=== PATIENT | male | born 1965 | race African-American/Black ===

== ENCOUNTER 2023-02-18 21:37 | Inpatient (IN) | payer OTHER ==
[2023-02-18 21:42] VITALS: BMI 36.0
[2023-02-18] MEDS ORDERED: LORazepam 2 MG/ML SDV VIAL IM ONE (22:12)
[2023-02-18] MEDS ORDERED: LORazepam 2 MG/ML SDV VIAL IVPUSH PRN (22:15)
[2023-02-18 22:19] LABS: BASO % 0.5 % (0-2.0); HEMATOCRIT 33.6 % (35.4-49); LYMPH % 22.7 % (8-40); MCH 29.2 pg (25.7-33.7); MCHC 32.8 g/dl (32.0-35.9); MEAN PLT VOLUME 8.3 fl (7.5-11.1); MONO % 6.5 % (3.8-10.2); NEUT % 68.3 % (42.8-82.8); PLATELET COUNT 297 10^3/uL (134-434); RBC 3.78 M/mm3 (4.00-5.60); RDW 13.6 % (11.9-15.9); WHITE BLOOD COUNT 17.2 K/mm3 (4.0-10.0)
[2023-02-18 22:43] LABS: ALBUMIN 4.2 g/dl (3.4-5.0); BLOOD UREA NITROGEN 12.6 mg/dL (7-18); CALCIUM 9.4 mg/dL (8.5-10.1); CO2 25 mmol/L (21-32); GLUCOSE,RANDOM 145 mg/dL (74-106); MAGNESIUM 2.2 mg/dL (1.8-2.4)
[2023-02-18 22:46] LABS: CREATININE 1.2 mg/dL (0.55-1.3); PHOSPHOROUS 4.1 mg/dL (2.5-4.9); SGPT/ALT 47 U/L (13-61)
[2023-02-18 22:47] LABS: SGOT/AST 24 U/L (15-37)
[2023-02-18 22:48] LABS: BILIRUBIN,TOTAL 0.2 mg/dL (0.2-1)
[2023-02-18 22:49] LABS: ALK PHOS 115 U/L (45-117)
[2023-02-18 22:56] LABS: LACTIC ACID 4.7 mmol/L (0.4-2.0)
[2023-02-18 23:06] LABS: ANION GAP 6 MMOL/L (8-16); CHLORIDE 106 mmol/L (98-107); POTASSIUM 3.6 mmol/L (3.5-5.1); SODIUM 137 mmol/L (136-145)
[2023-02-18] MEDS ORDERED: SODIUM CHLORIDE 0.9% 500 ML INFUS.BAG IV ONE (23:27)
[2023-02-18] MEDS ORDERED: levETIRAcetam 500 MG/5 ML INJECTION VIAL IVPB ONE ×2 (23:48→23:49)
[2023-02-19 00:37] LABS: URINE APPEARANCE CLEAR; URINE BILIRUBIN NEGATIVE (NEGATIVE); URINE COLOR YELLOW; URINE GLUCOSE (UA) NEGATIVE (NEGATIVE); URINE KETONE NEGATIVE (NEGATIVE); URINE LEUK ESTERASE NEGATIVE (NEGATIVE); URINE NITRITE NEGATIVE (NEGATIVE); URINE PROTEIN NEGATIVE (NEGATIVE); URINE UROBILINOGEN 0.2 mg/dL (0.2-1.0)
[2023-02-19 00:45] LABS: COCAINE, UR NEGATIVE (NEGATIVE)
[2023-02-19 00:46] LABS: OPIATES, URI NEGATIVE (NEGATIVE); PHENCYCLIDINE,URINE NEGATIVE (NEGATIVE); URINE AMPHETAMINES NEGATIVE (NEGATIVE); URINE BARBITURATES NEGATIVE (NEGATIVE)
[2023-02-19 00:47] LABS: METHADONE, UR NEGATIVE (NEGATIVE)
[2023-02-19 01:09] LABS: URINE BENZODIAZEPINES NEGATIVE (NEGATIVE)
[2023-02-19 01:21] LABS: BASO % 0.4 % (0-2.0); EOS % 0.5 % (0-4.5); HEMATOCRIT 31.4 % (35.4-49); HEMOGLOBIN 10.4 GM/dL (11.7-16.9); LYMPH % 10.8 % (8-40); MCH 29.5 pg (25.7-33.7); MCHC 33.2 g/dl (32.0-35.9); MEAN CELL VOLUME 88.9 fl (80-96); MEAN PLT VOLUME 8.1 fl (7.5-11.1); NEUT % 82.3 % (42.8-82.8); PLATELET COUNT 249 10^3/uL (134-434); RBC 3.53 M/mm3 (4.00-5.60); RDW 13.5 % (11.9-15.9); WHITE BLOOD COUNT 12.1 K/mm3 (4.0-10.0)
[2023-02-19] MEDS ORDERED: DEXTROSE 5%-0.45% SALINE 1,000 ML IV SCH ×2 (02:15→16:31)
[2023-02-19] MEDS ORDERED: levETIRAcetam 500 MG/5 ML INJECTION VIAL IVPB ONE (09:46)
[2023-02-19] MEDS ORDERED: levETIRAcetam 500 MG/5 ML INJECTION VIAL IVPB SCH ×2 (10:00→22:00)
[2023-02-19] MEDS ORDERED: LORazepam 2 MG/ML SDV VIAL IVPUSH PRN (16:31)
[2023-02-19] MEDS ORDERED: LOSARTAN POTASSIUM 50 MG TABLET PO ONE (20:42)
[2023-02-19] MEDS ORDERED: THIAMINE HCL 100 MG TABLET (FP) PO ONE ×2 (20:44→21:45)
[2023-02-19] MEDS: chlordiazePOXIDE HCL 25 MG CAPSULE PO SCH (21:44)
[2023-02-19] MEDS: METOPROLOL TARTRATE 25 MG TABLET (FP) PO SCH (21:44)
[2023-02-19] MEDS: levETIRAcetam 500 MG TABLET (FP) PO SCH (21:44)
[2023-02-19] MEDS: carBAMazepine XR 400 MG TAB.ER.12H PO SCH (22:52)
[2023-02-20 05:37] VITALS: RESP 18
[2023-02-20] MEDS: chlordiazePOXIDE HCL 25 MG CAPSULE PO SCH (05:57)
[2023-02-20 08:12] LABS: HEMATOCRIT 32.5 % (35.4-49); HEMOGLOBIN 10.5 GM/dL (11.7-16.9); MCH 29.5 pg (25.7-33.7); MCHC 32.4 g/dl (32.0-35.9); MEAN CELL VOLUME 91.1 fl (80-96); MEAN PLT VOLUME 9.4 fl (7.5-11.1); PLATELET COUNT 270 10^3/uL (134-434); RBC 3.57 M/mm3 (4.00-5.60); RDW 13.2 % (11.9-15.9); WHITE BLOOD COUNT 10.1 K/mm3 (4.0-10.0)
[2023-02-20 08:33] LABS: POTASSIUM 4.3 mmol/L (3.5-5.1)
[2023-02-20 08:36] LABS: ALBUMIN 3.9 g/dl (3.4-5.0); BLOOD UREA NITROGEN 13.3 mg/dL (7-18); CALCIUM 9.3 mg/dL (8.5-10.1)
[2023-02-20 08:39] LABS: CREATININE 1.1 mg/dL (0.55-1.3)
[2023-02-20 08:41] LABS: BILIRUBIN,TOTAL 0.7 mg/dL (0.2-1); TOT PROT 7.1 g/dl (6.4-8.2)
[2023-02-20] MEDS ORDERED: THIAMINE HCL 100 MG TABLET (FP) PO SCH (10:00)
[2023-02-20] MEDS ORDERED: LOSARTAN POTASSIUM 50 MG TABLET PO SCH (10:00)
[2023-02-20] MEDS: levETIRAcetam 500 MG TABLET (FP) PO SCH (10:17)
[2023-02-20] MEDS: METOPROLOL TARTRATE 25 MG TABLET (FP) PO SCH (10:27)
[2023-02-20] MEDS: carBAMazepine XR 400 MG TAB.ER.12H PO SCH (10:29)
[2023-02-20 15:34] VITALS: BP 132/74; PULSE 74; TEMP 98.4
== END 2023-02-20 17:40 | disposition home or self-care (01) | DRG 53 ==
LOC: JER 21:37 → JERBED 23:51 → OBSVTOIN 02-19 12:54 → J6S 02-19 16:24
PROVIDERS: ADMIT Internal Medicine; ATTEND Family Medicine
DX: G40.909 Epilepsy, unspecified, not intractable, without status epilepticus (principal); I10 Essential (primary) hypertension; E78.5 Hyperlipidemia, unspecified; J45.20 Mild intermittent asthma, uncomplicated; F10.10 Alcohol abuse, uncomplicated; E87.20 Acidosis, unspecified
CPT/HCPCS: 36415; 70450-TC; 70496-TC; 71045-TC-FY; 80053; 80156; 80177; 80307; 81003; 83605; 83735; 84100; 85025; 85027; 87086; 87635; 93005; 93010; 97116-GP; 97162-GP; 99285-25; G0378; Q9967

== ENCOUNTER 2023-07-29 07:23 | Emergency (ER) | payer OTHER ==
[2023-07-29 07:43] VITALS: TEMP 99.1; BMI 35.0
[2023-07-29] MEDS ORDERED: carBAMazepine 200 MG TABLET PO ONE (07:53)
[2023-07-29] MEDS ORDERED: levETIRAcetam 500 MG TABLET (FP) PO ONE ×2 (07:53→08:38)
[2023-07-29] MEDS ORDERED: HYDROCHLOROTHIAZIDE 25 MG TABLET (FP) PO ONE (08:04)
[2023-07-29] MEDS ORDERED: LISINOPRIL 20 MG TABLET PO ONE (08:04)
[2023-07-29 08:23] LABS: BASO % 0.3 % (0-2.0); EOS % 0.6 % (0-4.5); HEMATOCRIT 32.7 % (35.4-49); HEMOGLOBIN 10.5 GM/dL (11.7-16.9); LYMPH % 9.9 % (8-40); MCH 29.3 pg (25.7-33.7); MCHC 32.1 g/dl (32.0-35.9); MEAN CELL VOLUME 91.3 fl (80-96); MONO % 5.9 % (3.8-10.2); NEUT % 83.3 % (42.8-82.8); PLATELET COUNT 259 10^3/uL (134-434); RBC 3.58 M/mm3 (4.00-5.60); RDW 13.2 % (11.9-15.9); WHITE BLOOD COUNT 13.3 K/mm3 (4.0-10.0)
[2023-07-29] MEDS ORDERED: LISINOPRIL 20 MG TABLET ONE (08:38)
[2023-07-29] MEDS ORDERED: HYDROCHLOROTHIAZIDE 25 MG TABLET (FP) ONE (08:38)
[2023-07-29] MEDS ORDERED: carBAMazepine 200 MG TABLET ONE (08:38)
[2023-07-29 08:40] LABS: POTASSIUM 3.9 mmol/L (3.5-5.1)
[2023-07-29 08:43] LABS: ALBUMIN 4.1 g/dl (3.4-5.0); BLOOD UREA NITROGEN 14.8 mg/dL (7-18)
[2023-07-29 08:46] LABS: CREATININE 0.9 mg/dL (0.55-1.3)
[2023-07-29 08:48] LABS: BILIRUBIN,TOTAL 0.4 mg/dL (0.2-1); TOT PROT 7.6 g/dl (6.4-8.2)
[2023-07-29 10:06] VITALS: RESP 20
[2023-07-29 10:56] VITALS: BP 145/64; PULSE 87
== END 2023-07-29 11:18 | disposition home or self-care (01) ==
LOC: JER 07:23
DX: R55 Syncope and collapse (principal); R56.9 Unspecified convulsions; R42 Dizziness and giddiness; Z20.822 Contact with and (suspected) exposure to COVID-19
CPT/HCPCS: 0241U-QW; 36415; 70450-TC; 71045-TC-FY; 80053; 80156; 80177; 83605; 84484; 85025; 93005; 93010; 99285-25

== ENCOUNTER 2024-01-03 09:19 | Emergency (ER) | payer OTHER ==
[2024-01-03 09:27] VITALS: TEMP 98.9; BMI 35.2
[2024-01-03 10:32] LABS: BASO % 0.3 % (0-2.0); EOS % 1.2 % (0-4.5); HEMATOCRIT 34.8 % (35.4-49); HEMOGLOBIN 11.2 GM/dL (11.7-16.9); LYMPH % 15.5 % (8-40); MCH 29.1 pg (25.7-33.7); MCHC 32.1 g/dl (32.0-35.9); MEAN CELL VOLUME 90.6 fl (80-96); MEAN PLT VOLUME 8.8 fl (7.5-11.1); MONO % 5.1 % (3.8-10.2); NEUT % 77.9 % (42.8-82.8); PLATELET COUNT 310 10^3/uL (134-434); RBC 3.84 M/mm3 (4.00-5.60); WHITE BLOOD COUNT 13.9 K/mm3 (4.0-10.0)
[2024-01-03 10:56] LABS: POTASSIUM 4.3 mmol/L (3.5-5.1)
[2024-01-03 10:57] LABS: MAGNESIUM 2.3 mg/dL (1.8-2.4)
[2024-01-03 10:58] LABS: BLOOD UREA NITROGEN 19.1 mg/dL (7-18); CALCIUM 9.5 mg/dL (8.5-10.1)
[2024-01-03 11:00] LABS: ALBUMIN 4.2 g/dl (3.4-5.0)
[2024-01-03 11:01] LABS: PHOSPHOROUS 3.8 mg/dL (2.5-4.9)
[2024-01-03 11:03] LABS: CREATININE 1.1 mg/dL (0.55-1.3)
[2024-01-03 11:04] LABS: BILIRUBIN,TOTAL 0.6 mg/dL (0.2-1)
[2024-01-03 12:11] LABS: PH,URINE 5.5 (5.0-8.0); URINE APPEARANCE CLEAR; URINE BILIRUBIN NEGATIVE (NEGATIVE); URINE COLOR YELLOW; URINE GLUCOSE (UA) NEGATIVE (NEGATIVE); URINE KETONE NEGATIVE (NEGATIVE); URINE LEUK ESTERASE NEGATIVE (NEGATIVE); URINE NITRITE NEGATIVE (NEGATIVE); URINE PROTEIN NEGATIVE (NEGATIVE); URINE UROBILINOGEN 0.2 mg/dL (0.2-1.0)
[2024-01-03 13:59] VITALS: BP 138/81; PULSE 87; RESP 19
== END 2024-01-03 13:59 | disposition home or self-care (01) ==
LOC: JER 09:19
DX: G40.409 Other generalized epilepsy and epileptic syndromes, not intractable, without status epilepticus (principal)
CPT/HCPCS: 36415; 70450-TC; 71045-TC-FY; 80053; 80156; 80177; 81003; 82962; 83735; 84100; 85025; 87086; 93005; 93010; 99285-25